=== PATIENT | male | born 1955 | race Caucasian/White ===

== ENCOUNTER 2019-09-01 16:14 | Emergency (ER) | payer BC ==
[~2019-09-01] VITALS: Ht 177.8 cm; Wt 102.1 kg
[2019-09-01 16:21] VITALS: BP_SYST 146
--- NOTE | 2019-09-01 16:27 | NUR ---
Olesya jaiem in [facility] - 09/01/19 at 1627 by ADONIS a
--- NOTE | 2019-09-01 16:27 | NUR ---
Patient triaged and placed in waiting room. VSS and patient appears in no acute distress at this time. Awaiting available bed, and MD notified of need for MSE.
--- NOTE | 2019-09-01 17:30 | NUR ---
Patient called, no answer.
--- NOTE | 2019-09-01 17:45 | NUR ---
Patient called again, no answer. Patient LWBS.
== END 2019-09-01 17:45 | disposition left against medical advice (07) ==
LOC: SED 16:14
DX: M79.89 Other specified soft tissue disorders (principal); Z53.21 Procedure and treatment not carried out due to patient leaving prior to being seen by health care provider
CPT/HCPCS: 93970; 99281